=== PATIENT | male | born 1965 ===

== ENCOUNTER 2021-09-17 18:32 | Inpatient (IN) | payer SELFPAY ==
[~2021-09-17] VITALS: Ht 182.9 cm; Wt 81.0 kg
[2021-09-17] VITALS (111 sets, daily range): O2SAT 70–100
[2021-09-17 21:31] LABS: BASO # 0.1 K/mm3 (0.0-0.2); BASO % 1.1 % (0.0-2.0); EOS # 0.1 K/mm3 (0.0-0.7); EOS % 2.1 % (0.0-4.0); GRAN # 3.1 K/mm3 (1.4-6.5); GRAN % 65.3 % (42.2-75.2); HEMATOCRIT 37.8 % (42.0-52.0); HEMOGLOBIN 13.2 g/dl (13.5-18.0); LYMPH # 0.8 K/mm3 (1.2-3.4); LYMPH % 16.5 % (20.0-51.0); MEAN CELL VOLUME 94 fl (80.0-100.0); MEAN CORPUSCULAR HEMOGLOBIN 33 pg (27-31); MEAN CORPUSCULAR HGB CONC 35 g/dl (33.0-37.0); MONO # 0.7 K/mm3 (0.1-0.6); MONO % 14.6 % (1.7-9.3); PLATELET COUNT 120 K/mm3 (130-400); RED BLOOD COUNT 4.01 M/mm3 (4.20-5.60); REDCELL DISTRIBUTION WIDTH-CV 13.6 % (11.5-14.5)
[2021-09-17 21:36] LABS: INR 1.1 (0.8-3.0); PROTHROMBIN TIME 12.2 SECONDS (9.7-12.8)
[2021-09-17] MEDS ORDERED: NEURONTIN600 MG/TAB (21:36)
[2021-09-17] MEDS ORDERED: PRINIVIL40 MG (21:37)
[2021-09-17 21:39] LABS: PARTIAL THROMBOPLASTIN TIME 33.2 SECONDS (26.0-37.0)
[2021-09-17 21:52] LABS: ALBUMIN 4.1 gm/dL (3.5-5.0); BILIRUBIN,TOTAL 1.4 mg/dL (0.2-1.2); CALCIUM 9.8 mg/dL (8.4-10.2); CREATININE, serum 0.77 mg/dL (0.72-1.25); MAGNESIUM 1.6 mg/dL (1.6-2.6); POTASSIUM 3.2 mmol/L (3.5-4.5); TOTAL PROTEIN 7.2 gm/dL (6.2-8.1)
[2021-09-17 22:48] LABS: COLLECTION METHOD CLEAN CATCH
[2021-09-17 23:06] LABS: TRICYCLIC ANTIDEPRESS URINE NEGATIVE
[2021-09-17 23:09] LABS: PH 8 (5-8); SQUAMOUS EPITHELIAL None Seen /hpf (0-10); URINE APPEARANCE Clear (CLEAR/HAZY); URINE BACTERIA None Seen /hpf (NONE SEEN); URINE BILIRUBIN Negative (NEGATIVE); URINE BLOOD 1+ (NEGATIVE); URINE COLOR Straw (YELLOW); URINE GLUCOSE Negative (NEGATIVE); URINE KETONE Negative (NEGATIVE); URINE LEUKOCYTE ESTERASE Negative (NEGATIVE); URINE NITRATE Negative (NEGATIVE); URINE PROTEIN(semi-quant) Negative (NEGATIVE); URINE RBC 0-2 /hpf (0-2); URINE UROBILINOGEN Negative (NEGATIVE); URINE WBC 0-2 /hpf (0-2)
[2021-09-18] VITALS (1336 sets, daily range): BP systolic 135–199; BP diastolic 42–115; PULSE 65–105; TEMP 97–99.4; O2SAT 67–100
[2021-09-18 09:08] LABS: ALBUMIN 4.2 gm/dL (3.5-5.0); BILIRUBIN,TOTAL 1.3 mg/dL (0.2-1.2); CALCIUM 9.6 mg/dL (8.4-10.2); CREATININE, serum 0.69 mg/dL (0.72-1.25); POTASSIUM 3.7 mmol/L (3.5-4.5); TOTAL PROTEIN 7.3 gm/dL (6.2-8.1)
[2021-09-19] VITALS (8 sets, daily range): BP systolic 120–161; BP diastolic 75–94; PULSE 75–91; TEMP 97.9–98.9
[2021-09-19 06:31] LABS: BASO # 0.1 K/mm3 (0.0-0.2); BASO % 1.6 % (0.0-2.0); EOS # 0.1 K/mm3 (0.0-0.7); EOS % 3.1 % (0.0-4.0); GRAN # 2.4 K/mm3 (1.4-6.5); GRAN % 54.1 % (42.2-75.2); HEMATOCRIT 38.5 % (42.0-52.0); HEMOGLOBIN 13.3 g/dl (13.5-18.0); LYMPH % 21.8 % (20.0-51.0); MEAN CELL VOLUME 94 fl (80.0-100.0); MEAN CORPUSCULAR HEMOGLOBIN 33 pg (27-31); MEAN CORPUSCULAR HGB CONC 35 g/dl (33.0-37.0); MONO # 0.8 K/mm3 (0.1-0.6); MONO % 18.7 % (1.7-9.3); PLATELET COUNT 152 K/mm3 (130-400); RED BLOOD COUNT 4.09 M/mm3 (4.20-5.60); REDCELL DISTRIBUTION WIDTH-CV 13.5 % (11.5-14.5)
[2021-09-19 06:46] LABS: CALCIUM 9.5 mg/dL (8.4-10.2); CREATININE, serum 0.93 mg/dL (0.72-1.25); MAGNESIUM 1.6 mg/dL (1.6-2.6); POTASSIUM 3.8 mmol/L (3.5-4.5)
[2021-09-19] MEDS ORDERED: DUO-KAPS1 CAP PO (08:57)
[2021-09-19] MEDS ORDERED: THIAMINE 1100 MG/TAB PO (08:57)
[2021-09-19] MEDS ORDERED: FOLIC ACID 11 MG/TA1 PO (08:58)
[2021-09-19] MEDS ORDERED: VALIUM 10MG10 MG/TAB PO ×2 (09:00)
[2021-09-20] VITALS (10 sets, daily range): BP systolic 122–145; BP diastolic 73–97; PULSE 65–96; TEMP 97.4–98.5
[2021-09-21 02:08] VITALS: BP 137/87; PULSE 79; TEMP 98.1
[2021-09-21 04:04] VITALS: BP 122/74; PULSE 75; TEMP 98.4
[2021-09-21 06:11] LABS: HEMATOCRIT 37.8 % (42.0-52.0); HEMOGLOBIN 12.7 g/dl (13.5-18.0); MEAN CELL VOLUME 97 fl (80.0-100.0); MEAN CORPUSCULAR HEMOGLOBIN 33 pg (27-31); MEAN CORPUSCULAR HGB CONC 34 g/dl (33.0-37.0); PLATELET COUNT 206 K/mm3 (130-400); RED BLOOD COUNT 3.91 M/mm3 (4.20-5.60); REDCELL DISTRIBUTION WIDTH-CV 13.5 % (11.5-14.5)
[2021-09-21 06:23] LABS: ALBUMIN 3.8 gm/dL (3.5-5.0); BILIRUBIN,TOTAL 0.6 mg/dL (0.2-1.2); CALCIUM 9.9 mg/dL (8.4-10.2); CREATININE, serum 0.79 mg/dL (0.72-1.25); TOTAL PROTEIN 6.6 gm/dL (6.2-8.1)
[2021-09-21 06:55] VITALS: BP 109/71; PULSE 73; TEMP 98.3
[2021-09-21 07:15] LABS: BASOPHIL 2 % (0-2); EOSINOPHIL 1 % (0-4); LYMPHOCYTE 27 % (20.0-51.0); NEUTROPHILS 55 % (42.0-75.2)
[2021-09-21 07:16] LABS: PLATELET ESTIMATE NORMAL (NORMAL)
[2021-09-21 07:34] VITALS: BP 119/77; PULSE 70; TEMP 97.9
[2021-09-21 10:00] VITALS: BP 125/81; PULSE 78; TEMP 98
[2021-09-21 11:09] VITALS: BP 140/95; PULSE 85; TEMP 98.3
== END 2021-09-21 14:53 | disposition home or self-care (01) | DRG 897 ==
LOC: ICU 20:08 → MEDICAL 09-18 22:15
PROVIDERS: Nurse Practitioner Family; Physician Assistant; ADMIT Internal Medicine
DX: F10.139 Alcohol abuse with withdrawal, unspecified (principal); D61.818 Other pancytopenia; I10 Essential (primary) hypertension; G62.9 Polyneuropathy, unspecified; E87.6 Hypokalemia; E80.6 Other disorders of bilirubin metabolism; K70.40 Alcoholic hepatic failure without coma; E83.42 Hypomagnesemia
CPT/HCPCS: 99223-AI; 99232-AI; 99233-AI; 99239; A4314; J1650; J2060; J3480; J7030